=== PATIENT | female | born 2005 | race Two or more races ===

== ENCOUNTER 2024-07-09 21:20 | Emergency (ER) | payer MEDICAID, SELFPAY ==
[2024-07-09 21:46] VITALS: BP 130/70; PULSE 88; RESP 18; TEMP 36.9; O2SAT 100; BMI 28.3
--- NOTE | 2024-07-09 22:02 | XR_ITS ---
Examination: Right hand 2 views TECHNIQUE: AP lateral right hand 2 views Date and time: July 09, 2024 1043 hours INDICATIONS: Injury to the hand today, hand pain. FINDINGS: No fracture or dislocation. No foreign body IMPRESSION: No fracture or dislocation
--- NOTE | 2024-07-09 22:04 | EDNOTE_ITS ---
Upper Extremity Injury RME/HPI General Chief Complaint: Hand/Wrist Problems Stated Complaint: CLOSED CAR DOOR ON RIGHT HAND Time Seen by Provider: 07/09/24 22:00 Arrival date/time: 07/09/24 21:20 RME / HPI RME / HPI narrative: 19-year-old female patient was brought in by family for evaluation regarding right middle finger injury. Patient right middle finger got closed with a car door resulting to abrasions and tenderness. No deformity noted. Patient is able to bend and extend the finger without any limitation. No medications taken prior to arrival patient does not know when was the last time she had a tetanus shot. Related Data Home Medications ?Medication ?Instructions ?Recorded ?Confirmed ferrous sulfate 325 mg (65 mg 325 mg PO BID 04/25/21 0 04/25/21 iron) tablet (FeroSul) vit no.95-ferrous 1 tab PO QDAY 04/25/21 03/0 03/18 fumarate 28 mg-folic acid 800 mcg tablet () Allergies Allergy/AdvReac Type Severity Reaction Status Date / Time No Known Allergies Allergy Verified 07/09/24 21:20 Review of Systems Review of Systems Narrative Review of Systems: Review of system reviewed and within normal limits except mentioned in HPI ED Exam Narrative Physical exam: VITAL SIGNS: Reviewed. GENERAL APPEARANCE: Alert and interactive, follows commands, no acute distress, HEAD AND FACE: Non-traumatic. ENT: PERRL, pink conjunctivitis, eyelid no trauma, Mucous membrane moist. NECK: Supple, nontender, no nuchal rigidity. MUSCULOSKELETAL: low back nontender, full range of motion. EXTREMITIES: 0.5 cm abrasion to the right middle finger middle phalanx full range of motion of the finger, no deformity full range of motion. SKIN: Color pink, dry, no rash, no lacerations, no abrasions, no contusions. LYMPHATICS: Deferred. Course Quality Measures none Orders Category Date Time Status XR hand RT 2V Stat Exams 07/09/24 22:02 Taken Ibuprofen Tab [Motrin Tab] Med 07/09/24 22:04 Discontinued 800 mg PO X1 ONE TET,DIP/PERT AC (Adult)-Tdap [Boostrix Adult (Tdap) Med 07/09/24 22:02 Discontinued Vacc] 0.5 ml IMI .ONCE ONE Vital Signs Vital signs: Vital Signs Temperature 98.5 F 07/09/24 21:46 Pulse Rate 88 07/09/24 21:46 Respiratory Rate 18 07/09/24 21:46 Blood Pressure 130/70 07/09/24 21:46 Pulse Oximetry (%) 100 07/09/24 21:46 Oxygen Delivery Method Room Air 07/09/24 21:46 Extremity Injury [facility] Narrative [facility] Narrative:: 19-year-old female patient was brought in by family for evaluation regarding right middle finger injury. Patient right middle finger got closed with a car door resulting to abrasions and tenderness. No deformity noted. Patient is able to bend and extend the finger without any limitation. No medications taken prior to arrival patient does not know when was the last time she had a tetanus shot. Dressing with Neosporin applied. Primary repair is not at this time x-ray of the hand came back unremarkable. Results discussed with the patient and family. Patient stable for discharge home Patient data External records reviewed:: None Clinical information provided by:: none Social determinants that could affect healthcare access:: none Patient has the following chronic illnesses:: None How is presenting disease/condition affected by chronic disease/condition?: no chronic disease Evaluation data The following diagnostics were reviewed and interpreted by me:: radiology exam(s) Lab and/or radiology exams considered but not ordered:: None Interpretation Summary: See results [facility] Medications / Prescriptions Medications or Prescriptions considered but not ordered:: None Medication administrations:: Medication Administration History Discontinued Medications Diphtheria/Tetanus/Acell Pertussis (Diphth,Pertuss(Acell),Tet Vac 0.5 Ml Syr- Adult) 0.5 ml IMi .ONCE ONE Stop: 07/09/24 22:03 Ibuprofen (Ibuprofen Tab 400 Mg Tablet) 800 mg PO X1 ONE Stop: 07/09/24 22:05 Boostrix and Motrin Consultations Consultation(s) initiated? (list below): No Diagnosis Upper Extremity Injury Differential Diagnosis: finger sprain and dislocation of finger Most likely diagnosis given after review of the tests above:: Abrasion finger Admission Indicated Admission indicated?: not indicated Admission Request Was there a request for admission?: No Disposition Plan Disposition Plan: Discharge Discharge Attestation Discharge Attestation: The patient and all family members were given an opportunity to ask questions and understood the discharge instructions. Discharge instructions specifically effects, indications for sooner follow up or return to the emergency department, and the expected course of current diagnosis. Patient condition: Stable Discharge Plan Plan Patient Disposition: HOME (Self Care) Discharge Disposition comment: stable Prescriptions/Referrals Prescriptions/Med Rec: No Action ferrous sulfate [FeroSul] 325 mg (65 mg iron) tablet 325 mg PO BID PNV cmb#95-ferrous fumarate-FA [] 28 mg iron- 800 mcg tablet 1 tab PO QDAY Problem List Clinical Impression: Abrasion of finger Patient/Caregiver Discharge Instructions Discharge Activity: activity as tolerated Education Materials: ED Abrasions Additional Instructions: Thank you for the opportunity for serving you today. You are stable for disc harged . You are advised to: Follow-up with your PCP in 1 to 2 days Return to ED for worsening of symptoms Increase oral fluids Daily dressing with bacitracin as needed Take Tylenol as needed for pain Print Language: Syriac Stand Alone Forms: Betty Award Info., Patient Portal Info Letter PA/[employer] Supervising Physician TEODORO/MERY Supervising Physician: MD Janet
[2024-07-09] MEDS: IBUPROFEN TAB 400 MG TABLET 800 MG PO (23:08)
[2024-07-09] MEDS: DIPHTH,PERTUSS(ACELL),TET VAC 0.5 ML SYR- ADULT IMi (23:19)
--- NOTE | 2024-07-09 23:55 | PC.NURSE ---
CALLED PATIENT IN THE LOBBY AND OUTSIDE, NO ANSWER RECEIVED.
--- NOTE | 2024-07-10 | PC.NURSE ---
CALLED PATIENT IN THE LOBBY AND OUTSIDE, NO ANSWER RECEIVED.
--- NOTE | 2024-07-10 00:43 | PC.NURSE ---
CALLED PATIENT IN THE LOBBY AND OUTSIDE, NO ANSWER RECEIVED.
--- NOTE | 2024-07-10 00:50 | PC.NURSE ---
CALLED PATIENT IN THE LOBBY AND OUTSIDE, NO ANSWER RECEIVED.
== END 2024-07-10 00:52 | disposition home or self-care (01) ==
LOC: SERX 23:07
PROVIDERS: Emergency Provider Emergency Medicine; PCP Family Medicine
DX: S60.412A Abrasion of right middle finger, initial encounter (principal); W23.0XXA Caught, crushed, jammed, or pinched between moving objects, initial encounter; Z23 Encounter for immunization
CPT/HCPCS: 73120; 90471; 90715; 99283; A9270